=== PATIENT | female | born 1945 | race Hispanic/Latino ===

== ENCOUNTER 2018-07-25 15:01 | Emergency (ER) | payer OTHER ==
[2018-07-25] MEDS ORDERED: KETOROLAC TROMETHAMINE 30MG/ML ONE (15:40)
== END 2018-07-25 17:04 | disposition home or self-care (01) ==
LOC: EDH 15:01
DX: S39.012A Strain of muscle, fascia and tendon of lower back, initial encounter (principal); S09.8XXA Other specified injuries of head, initial encounter; M54.2 Cervicalgia; V49.49XA Driver injured in collision with other motor vehicles in traffic accident, initial encounter; Y93.89 Activity, other specified; Y92.89 Other specified places as the place of occurrence of the external cause; Y99.8 Other external cause status; I10 Essential (primary) hypertension; E78.5 Hyperlipidemia, unspecified; Z88.6 Allergy status to analgesic agent
CPT/HCPCS: 70450; 72125; 96372; 99284; J1885

== ENCOUNTER 2020-07-22 00:23 | Emergency (ER) | payer MEDICARE, OTHER ==
[2020-07-22 01:43] LABS: BASOPHILS % (AUTO) 0.6 % (0.0-5.0); EOSINOPHILS % (AUTO) 4.9 % (0.0-8.0); HEMATOCRIT 42.1 % (36-48); LYMPHOCYTES % (AUTO) 29.4 % (21.0-51.0); MEAN CORPUSCULAR HGB CONC 33.3 g/dL (32.0-36.0); MEAN CORPUSCULAR VOLUME 90.1 fL (79-99); MONOCYTES % (AUTO) 7.6 % (3.0-13.0); NEUTROPHILS % (AUTO) 57.1 % (40.0-77.0); PLATELET COUNT (AUTO) 217 K/uL (130-400); RED BLOOD CELL COUNT(AUTO) 4.67 MIL/uL (4.00-5.50); RED CELL DISTRIBUTION WIDTH 12.9 % (11.0-15.5); WHITE BLOOD COUNT (AUTO) 9.6 K/uL (4.8-10.8)
[2020-07-22 01:53] LABS: CREATININE 0.8 mg/dL (0.5-1.5); POTASSIUM 3.7 mmol/L (3.5-5.1)
[2020-07-22 01:58] LABS: ALBUMIN 3.2 g/dL (3.5-5.0); BILIRUBIN,TOTAL 0.4 mg/dL (0.2-1.0); TOTAL PROTEIN, SERUM 6.6 g/dL (6.0-8.3)
[2020-07-22 02:13] LABS: APPEARANCE,URINE Clear (CLEAR); BILIRUBIN,URINE Negative (NEGATIVE); COLOR,URINE Yellow (YELLOW); GLUCOSE, URINE (UA) Negative (NEGATIVE); KETONES,URINE Negative (NEGATIVE); LEUKOCYTE ESTERASE ,URINE Negative (NEGATIVE); NITRATE,URINE Negative (NEGATIVE); OCCULT BLOOD,URINE Negative (NEGATIVE); PH,URINE 6.5 (5.0-8.0); PROTEIN,URINE Negative (NEGATIVE); UROBILINOGEN,URINE 0.2 mg/dL (0.2-1.0)
== END 2020-07-22 07:09 | disposition home or self-care (01) ==
LOC: EDH 00:23
DX: R53.1 Weakness (principal); T48.1X5A Adverse effect of skeletal muscle relaxants [neuromuscular blocking agents], initial encounter; Y92.89 Other specified places as the place of occurrence of the external cause; E78.00 Pure hypercholesterolemia, unspecified; I10 Essential (primary) hypertension; Z86.73 Personal history of transient ischemic attack (TIA), and cerebral infarction without residual deficits
CPT/HCPCS: 36415; 80053; 81003; 85025

== ENCOUNTER → 2025-04-09 | Outpatient (CLI) | payer MEDICARE ==
[~2025-04-09] MED LIST: METR375C2 PO
--- NOTE | 2025-04-10 00:18 | HMCIMG ---
EXAM: RIGHT ANKLE RADIOGRAPH, 2 VIEWS CLINICAL INFORMATION: Shortness of breath with leg edema; ankle swelling. TECHNIQUE: Two views of the right ankle. COMPARISON: None provided. FINDINGS: ALIGNMENT/JOINTS: Ankle mortise is preserved without tibiotalar subluxation. OSSEOUS STRUCTURES: No acute fracture or dislocation is identified. SOFT TISSUES: Mild circumferential soft-tissue swelling about the ankle. OTHER: Plantar calcaneal spur is present. IMPRESSION: * Mild soft-tissue swelling of the right ankle without acute osseous abnormality. * Plantar calcaneal spur. /[place]
--- NOTE | 2025-04-10 05:48 | HMCIMG ---
EXAM: CR Chest, 1 view. CLINICAL HISTORY: Cough. COMPARISON: None provided. FINDINGS: The lungs show no infiltrate or other acute findings. No pleural effusion or pneumothorax. The cardiomediastinal silhouette is within normal limits. No acute osseous abnormality. IMPRESSION: 1. No acute cardiopulmonary pathology is evident. /[place]
== END | disposition home or self-care (01) ==
LOC: RAH 15:16
DX: M77.31 Calcaneal spur, right foot (principal); R06.02 Shortness of breath; R60.0 Localized edema
CPT/HCPCS: 71046; 73600

== ENCOUNTER → 2025-04-12 | Outpatient (CLI) | payer MEDICARE ==
[~2025-04-12] MED LIST changes: +ATOR10 PO; +AZIT250T9 PO; +KRIL1CAP40 PO; +LEVO88CA5 PO; +LISI20TA24 PO; +METO-391 PO; +OMEP20CA12 PO; +PRED20TA3 PO
--- NOTE | 2025-04-13 05:43 | HMCIMG ---
EXAMINATION: SPECTRAL DOPPLER ULTRASOUND EXAMINATION OF THE RIGHT LOWER EXTREMITY VEINS. CLINICAL HISTORY: Edema. COMPARISON: None provided. TECHNIQUE: Real-time ultrasound scan of the veins of the right lower extremity with color Doppler flow, spectral waveform analysis and compression. FINDINGS: DEEP VEINS: The common femoral and superficial femoral veins are echolucent and compressible. There is normal color Doppler flow throughout. The visualized calf veins appear patent. The right popliteal vein is non-compressible and there is no flow on augmentation. SUPERFICIAL VEINS: The greater saphenous vein is patent and compressible. SOFT TISSUES: No popliteal fossa cyst or other abnormalities. 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 No deep venous thrombosis in the remainder of the right lower extremity. /[place]
== END | disposition home or self-care (01) ==
LOC: RAH 09:27
DX: I82.431 Acute embolism and thrombosis of right popliteal vein (principal); R60.0 Localized edema
CPT/HCPCS: 93971